=== PATIENT | female | born 1930 | race Caucasian/White ===

== ENCOUNTER 2017-12-16 07:18 | Emergency (ER) | payer MEDICARE, BC, MEDICAID ==
[2017-12-16 07:41] VITALS: BP 107/65
[2017-12-16 07:58] LABS: CHLORIDE,CL 96 mEq/L (98-106); SODIUM,NA 135 mEq/L (136-145)
[2017-12-16] MEDS ORDERED: Iopamidol 612 MG/ML 100 ML Bottle IVPUSH ONE (08:13)
[2017-12-16] MEDS ORDERED: Sodium Chloride 0.9% 500 ML IV SCH (08:15)
--- NOTE | 2017-12-16 08:27 | EDM.PDOC ---
ED HPI GENERAL MEDICAL PROBLEM - General Chief Complaint: General Stated Complaint: bleeding from vagina or rectum Time Seen by Provider: 12/16/17 08:01 Source of Information: Reports: Patient History Limitations: Reports: No Limitations - History of Present Illness INITIAL COMMENTS - FREE TEXT/NARRATIVE: This patient is an 87 year old female that presents to the ER. Patient reports that she was at the intermediate and was having a BM. She reports during her BM she had abdominal cramping, then looked down in the toilet and the BM was dark red blood per patient. Patient reports that after she had her BM she became lightheaded and her abdominal pain has continued. The patient reports that she has not had bleeding from rectum before. Patient does report that she has had history of diverticulitis. Patient denies fitch, n, v, d, f, cp, soa, back pain, neck pain, nec stiffness, runny nose, congestion, drainage, rashes. Patient does report having decreased urination. Will perform labs and CT due to patient abdominal tenderness with hx of diverticulitis. Onset: Today Onset Date: 12/16/17 Onset Time: 06:00 Duration: Hour(s): (2) Location: Reports: Abdomen Quality: Reports: Other (cramping) Severity: Mild Improves with: Reports: None Worsens with: Reports: None Associated Symptoms: Denies: Confusion, Chest Pain, Cough, cough w sputum, Diaphoresis, Fever/Chills, Headaches, Loss of Appetite, Malaise, Nausea/Vomiting , Rash, Seizure, Shortness of Breath, Syncope, Weakness - Related Data Allergies Allergy/AdvReac Type Severity Reaction Status Date / Time No Known Allergies Allergy Verified 12/16/17 07:35 Home Meds: Home Meds Aspirin [Halfprin] 81 mg PO DAILY 12/12/14 [History] Brimonidine Tartrate [Alphagan P 0.1% Oph Soln] 1 drop EYELF BID 12/12/14 [ History] Carvedilol 25 mg PO BID 12/12/14 [History] Cholecalciferol (Vitamin D3) [Vitamin D3] 2,000 unit PO DAILY 12/12/14 [History] Dorzolamide HCl/Timolol Maleat [Dorzolamide-Timolol Eye Drops] 1 drop EYELF BID 12/12/14 [History] Furosemide [Lasix] 40 mg PO BID 12/12/14 [History] Latanoprost 1 drop EYELF BEDTIME 12/12/14 [History] Levothyroxine 150 mcg PO 0700 12/12/14 [History] Multivitamin with Minerals [Antioxidant Vitamin] 1 tab PO DAILY 12/12/14 [ History] Oxybutynin [Oxybutynin ER] 10 mg PO DAILY 12/12/14 [History] guaiFENesin/Dextromethorphan [Tussin Dm Cough Syrup] 10 ml PO Q4H PRN 12/12/14 [ History] prednisoLONE Acetate [Pred Forte 1% Ophth Susp] 1 drop EYERT QID 12/12/14 [ History] rOPINIRole HCl [Requip] 0.25 mg PO BEDTIME 12/12/14 [History] traMADol HCl [Tramadol HCl] 100 mg PO BID 12/12/14 [History] Docusate Sodium [Colace] 100 mg PO DAILY 01/17/16 [History] Insulin Aspart Protam & Aspart [Novolog Mix 70-30 Flexpen Syrn] 40 unit SQ ACDINNER 01/17/16 [History] Insulin Aspart Protam & Aspart [Novolog Mix 70-30 Flexpen Syrn] 76 unit SQ ACBREAKFAST 01/17/16 [History] Lutein 20 mg PO DAILY 01/17/16 [History] Magnesium Hydroxide [Milk of Magnesia] 30 ml PO DAILY PRN 01/17/16 [History] Gabapentin [Neurontin] 200 mg PO BID 04/16/16 [History] Acetaminophen [Tylenol] 325 - 650 mg PO Q6H PRN 01/06/17 [History] Polyethylene Glycol 3350 [MiraLAX] 17 gm PO DAILY 01/06/17 [History] Potassium Chloride 80 meq PO BID 01/06/17 [History] Metolazone 5 mg PO MOWEFR@0730 01/09/17 [History] Magnesium 500 mg PO DAILY 12/16/17 [History] Torsemide [Demadex] 20 mg PO DAILY 12/16/17 [History] Past Medical History HEENT History: Reports: Glaucoma, Macular Degeneration, Other (See Below) Other HEENT History: dry eye syndrome of bilateral lacrimal glands Cardiovascular History: Reports: CAD, Heart Failure, Hypertension, Other (See Below) Other Cardiovascular History: hypokalemia Respiratory History: Reports: Asthma, Pneumonia, Recurrent Gastrointestinal History: Reports: Chronic Constipation Genitourinary History: Reports: Urinary Incontinence, UTI, Recurrent Musculoskeletal History: Reports: Fracture, Fibromyalgia, Osteoarthritis, Osteoporosis, Other (See Below) Other Musculoskeletal History: restless legs syndrome, chronic pain Neurological History: Reports: Other (See Below) Other Neuro History: polyneuropathy Psychiatric History: Reports: Dementia Endocrine/Metabolic History: Reports: Diabetes, Type II, Hypothyroidism - Infectious Disease History Infectious Disease History: Reports: VRE Social & Family History - Family History Family Medical History: Unobtainable Cardiac: Reports: Hypertension Endocrine/Metabolic: Reports: Diabetes, type II - Tobacco Use Smoking Status *Q: Never Smoker Second Hand Smoke Exposure: No - Caffeine Use Caffeine Use: Reports: None - Alcohol Use Days Per Week of Alcohol Use: 0 - Recreational Drug Use Recreational Drug Use: No ED ROS GENERAL - Review of Systems Review Of Systems: See Below Constitutional: Reports: No Symptoms HEENT: Reports: No Symptoms Respiratory: Reports: No Symptoms Cardiovascular: Reports: Lightheadedness Endocrine: Reports: No Symptoms GI/Abdominal: Reports: Abdominal Pain, Black Stool. Denies: Nausea, Vomiting : Reports: No Symptoms Musculoskeletal: Reports: No Symptoms Skin: Reports: No Symptoms Neurological: Reports: No Symptoms Psychiatric: Reports: No Symptoms Hematologic/Lymphatic: Reports: No Symptoms Immunologic: Reports: No Symptoms ED EXAM, GENERAL - Physical Exam Exam: See Below Exam Limited By: No Limitations General Appearance: Alert, WD/WN, No Apparent Distress Eye Exam: Bilateral Eye: Normal Inspection, PERRL Ears: Normal External Exam, Normal Canal, Hearing Grossly Normal, Normal TMs Ear Exam: Bilateral Ear: Auricle Normal, Canal Normal, TM normal Nose: Normal Inspection, Normal Mucosa, No Blood Throat/Mouth: Normal Inspection, Normal Lips, Normal Teeth, Normal Gums, Normal Oropharynx, Normal Voice, No Airway Compromise Head: Atraumatic, Normocephalic Neck: Normal Inspection, Supple, Non-Tender, Full Range of Motion Respiratory/Chest: No Respiratory Distress, Lungs Clear, Normal Breath Sounds, No Accessory Muscle Use, Chest Non-Tender Cardiovascular: Normal Peripheral Pulses, Regular Rate, Rhythm, No Edema, No Gallop, No JVD, No Murmur, No Rub Peripheral Pulses: 2+: Radial (L), Radial (R), Posterior Tibial (L), Posterior Tibial (R), Dorsalis Pedis (L), Dorsalis Pedis (R) GI/Abdominal: Normal Bowel Sounds, Soft, No Organomegaly, No Distention, No Abnormal Bruit, No Mass, Pelvis Stable, Tender (mildly LLQ, RLQ. ) (Female) Exam: Deferred Rectal (Female) Exam: Heme + Stool. No: Decreased Rectal Tone, Fecal Impaction , Hemorrhoids, Mass, Perirectal Abscess, Rectal Fissure, Tenderness Back Exam: Normal Inspection, Full Range of Motion. No: CVA Tenderness (L), CVA Tenderness (R) Extremities: Normal Inspection, Normal Range of Motion, Non-Tender, No Pedal Edema, Normal Capillary Refill Neurological: Alert, Oriented, CN II-XII Intact, Normal Cognition, No Motor/ Sensory Deficits Psychiatric: Normal Affect, Normal Mood Skin Exam: Warm, Dry, Intact, Normal Color, No Rash Lymphatic: No Adenopathy EKG INTERPRETATION EKG Date: 12/16/17 Time: 07:43 Rate (Beats/Min): 65 QRS: RBBB ST-T: Normal Course - Vital Signs Last Recorded V/S: Last Vital Signs Temp 96.6 F 12/16/17 07:20 Pulse 71 12/16/17 07:20 Resp 20 12/16/17 07:20 BP 107/65 12/16/17 07:20 Pulse Ox 95 12/16/17 07:20 - Orders/Labs/Meds Orders: Active Orders 24 hr Category Date Time Status Abdomen Pelvis w Cont [CT] Stat Exams 12/16/17 08:02 Taken CRP [C-REACTIVE PROTEIN] [CHEM] Stat Lab 12/16/17 09:49 Ordered UA W/MICROSCOPIC [URIN] Stat Lab 12/16/17 07:52 Ordered Sodium Chloride 0.9% [Normal Saline] 500 ml Med 12/16/17 08:15 Active IV .BOLUS Medication Orders Sodium Chloride (Normal Saline) 500 mls @ 500 mls/hr IV .BOLUS ALEXUS Labs: Laboratory Tests 12/16/17 12/16/17 Range/Units 07:40 07:40 WBC 8.8 (5.0-10.0) 10^3/uL RBC 3.67 L (4.00-5.50) 10^6/uL Hgb 12.2 (12.0-16.0) g/dL Hct 38.3 (37.0-47.0) % MCV 104.4 H (82.0-94.0) fL MCH 33.2 H (27.0-32.0) pg MCHC 31.9 L (33.0-38.0) g/dL RDW Coeff of Yulia 12.5 (11.0-15.0) % Plt Count 228 (150-400) 10^3/uL Neut % (Auto) 54.4 (35-85) % Lymph % (Auto) 31.3 (10-55) % [place] % (Auto) 9.2 (0-16) % Eos % (Auto) 5.0 (0-5) % Baso % (Auto) 0.1 (0-3) % Neut # (Auto) 4.79 (1.80-7.00) 10^3/uL Lymph # (Auto) 2.75 (1.00-4.80) 10^3/uL [place] # (Auto) 0.81 H (0.00-0.80) 10^3/uL Eos # (Auto) 0.44 (0.00-0.45) 10^3/uL Baso # (Auto) 0.01 10^3/uL Sodium 135 L (136-145) mEq/L Potassium 4.2 (3.5-5.0) mEq/L Chloride 96 L (98-106) mEq/L Carbon Dioxide 36 H (21-32) mmol/L BUN 47 H (7-18) mg/dL Creatinine 1.4 H (0.6-1.0) mg/dL Est Cr Clr Drug Dosing 24.91 mL/min Estimated GFR (MDRD) 36 L (>=60) mL/min Glucose 201 H D (75-99) mg/dL Calcium 9.2 (8.4-10.1) mg/dL Total Bilirubin 0.5 (0.0-1.0) mg/dL AST 56 H (15-37) U/L ALT 56 (12-78) U/L Alkaline Phosphatase 65 (46-116) U/L Troponin I < 0.017 (0.00-0.06) ng/mL Total Protein 6.9 (6.4-8.2) g/dL Albumin 3.0 L (3.4-5.0) g/dL Meds: Medications Generic Name Dose Route Start Last Admin Trade Name Elvia PRN Reason Stop Dose Admin Sodium Chloride 500 mls @ 500 mls/hr 12/16/17 08:15 Normal Saline IV .BOLUS ALEXUS Discontinued Medications Generic Name Dose Route Start Last Admin Trade Name Freq PRN Reason Stop Dose Admin Iopamidol 100 ml 12/16/17 08:13 Isovue-300 (61%) IVPUSH 12/16/17 08:14 ONETIME ONE - Radiology Interpretation Free Text/Narrative:: Abd/Pelvis ct with contrast: Discussed with radiologist: No diverticulitis, no enteritis, no acute findings. - Re-Assessments/Exams Free Text/Narrative Re-Assessment/Exam: 12/16/17 09:50 Patient vital signs normal. Hgb normal. CT normal. Discussed with Dr. Lucio her PCP about patient. Will send back to intermediate and repeat labs tomorrow and have intermediate call him tomorrow with results. Departure - Departure Time of Disposition: 09:50 Disposition: Home, Self-Care 01 Condition: Good Clinical Impression: GI bleed Qualifiers: GI bleed type/associated pathology: unspecified gastrointestinal hemorrhage type Qualified Code(s): K92.2 - Gastrointestinal hemorrhage, unspecified - Discharge Information Instructions: Gastrointestinal Bleeding, [id number] Referrals: Ishaan Lucio MD [Primary Care Provider] - Forms: ED Department Discharge Additional Instructions: Followup with your primary care provider this week Have labs done of CBC, BMP, CRP, UA done tomorrow at intermediate then have intermediate call Dr. Lucio with results Increase fluids Return to the ER for worsening of condition or any emergent concerns - My Orders Last 24 Hours: My Active Orders 12/16/17 07:52 UA W/MICROSCOPIC [URIN] Stat 12/16/17 08:02 Abdomen Pelvis w Cont [CT] Stat 12/16/17 08:15 Sodium Chloride 0.9% [Normal Saline] 500 ml IV .BOLUS 12/16/17 09:49 CRP [C-REACTIVE PROTEIN] [CHEM] Stat - Assessment/Plan Last 24 Hours: My Active Orders 12/16/17 07:52 UA W/MICROSCOPIC [URIN] Stat 12/16/17 08:02 Abdomen Pelvis w Cont [CT] Stat 12/16/17 08:15 Sodium Chloride 0.9% [Normal Saline] 500 ml IV .BOLUS 12/16/17 09:49 CRP [C-REACTIVE PROTEIN] [CHEM] Stat Plan: PLEASE SEE RN NOTE FOR PFSH.
== END 2017-12-16 10:20 | disposition home or self-care (01) ==
LOC: CC.ED 07:18
DX: K92.2 Gastrointestinal hemorrhage, unspecified (principal); I11.0 Hypertensive heart disease with heart failure; I50.9 Heart failure, unspecified; E11.9 Type 2 diabetes mellitus without complications; E03.9 Hypothyroidism, unspecified; Z79.82 Long term (current) use of aspirin; Z79.899 Other long term (current) drug therapy; Z79.4 Long term (current) use of insulin
CPT/HCPCS: 36415; 74177; 80053; 84484; 85025; 86140; 93005; 99284; Q9967; 93010; 96360; J7040

== ENCOUNTER 2018-09-22 11:11 | Inpatient (IN) | payer MEDICARE, BC, MEDICAID ==
[2018-09-22 11:44] LABS: CHLORIDE,CL 97 mEq/L (98-106); SODIUM,NA 139 mEq/L (136-145)
[2018-09-22] MEDS ORDERED: Azithromycin 500 MG in Sodium Chloride 0.9% 250 ML IV SCH (14:00)
[2018-09-22] MEDS ORDERED: cefTRIAXone 1 GM Vial IVPUSH SCH (14:00)
[2018-09-22] MEDS: Furosemide 40 MG/4 ML VIAL IVPUSH SCH (15:31)
[2018-09-22] MEDS: Enoxaparin 30 MG/0.3 ML Syringe SUBCUT SCH (15:31)
[2018-09-22] MEDS ORDERED: Glucagon,Human Recombinant 1 MG Vial IM STA (17:58)
[2018-09-22] MEDS ORDERED: Acetaminophen 325 MG Tab PO PRN (18:18)
[2018-09-22] MEDS: rOPINIRole 0.25 MG Tab PO SCH (21:52)
[2018-09-22] MEDS: Gabapentin 100 MG Cap PO SCH (21:52)
[2018-09-22] MEDS: Budesonide 0.5 MG/2 ML Neb Susp INH SCH (21:52)
[2018-09-22] MEDS: traMADol 50 MG Tab PO SCH (21:52)
[2018-09-22] MEDS: Carvedilol 12.5 MG Tab PO SCH (21:53)
[2018-09-22] MEDS: prednisoLONE Acetate 1% Ophth Susp 5 ML Bottle EYERT SCH (21:56)
[2018-09-22] MEDS: Latanoprost 0.005% Ophth Soln 2.5 ML Bottle EYELF SCH (21:57)
[2018-09-23] MEDS: Levothyroxine 150 MCG Tab PO SCH (06:50)
[2018-09-23] MEDS ORDERED: Insuln Aspart Prot/Insulin Aspart 100 Units/ML 3 ML FlexPen SUBCUT SCH ×3 (07:00→17:00)
[2018-09-23] MEDS: Docusate Sodium 100 MG Cap PO SCH (08:10)
[2018-09-23] MEDS: Carvedilol 12.5 MG Tab PO SCH ×2 (08:10→19:50)
[2018-09-23] MEDS: Ferrous Sulfate 324 MG Tab.EC PO SCH (08:10)
[2018-09-23] MEDS: Aspirin 81 MG Tab.EC PO SCH (08:11)
[2018-09-23] MEDS: Budesonide 0.5 MG/2 ML Neb Susp INH SCH ×2 (08:12→19:51)
[2018-09-23] MEDS: Gabapentin 100 MG Cap PO SCH ×2 (08:12→19:50)
[2018-09-23] MEDS: traMADol 50 MG Tab PO SCH ×2 (08:12→19:49)
[2018-09-23] MEDS: Polyethylene Glycol 3350 Powder 17 GM Packet PO SCH (08:12)
[2018-09-23] MEDS: prednisoLONE Acetate 1% Ophth Susp 5 ML Bottle EYERT SCH ×4 (08:14→19:54)
[2018-09-23] MEDS: Furosemide 40 MG/4 ML VIAL IVPUSH SCH ×2 (08:15→15:22)
[2018-09-23] MEDS: DORZOLAMIDE HCL EYELF SCH ×3 (09:40→19:53)
[2018-09-23] MEDS: TIMOLOL MALEAT EYELF SCH ×3 (09:40→19:53)
[2018-09-23] MEDS: BRIMONIDINE TARTRATE EYELF SCH ×3 (09:41→19:52)
[2018-09-23] MEDS: Potassium Chloride 10 MEQ Tab.ER PO SCH ×2 (09:44→19:48)
[2018-09-23] MEDS: POTASSIUM CHLORIDE 80 MEQ PO SCH (09:46)
[2018-09-23] MEDS: Enoxaparin 30 MG/0.3 ML Syringe SUBCUT SCH (14:43)
[2018-09-23] MEDS: Insulin Aspart 100 Units/ML 3 ML Pen SUBCUT SCH (17:20)
--- NOTE | 2018-09-23 19:46 | PCM.PN ---
- General Info Date of Service: 09/23/18 Admission Dx/Problem (Free Text): Acute on Chronic Systolic CHF Functional Status: Reports: Pain Controlled, Tolerating Diet. Denies: Ambulating - Review of Systems General: Reports: Weakness, Fatigue HEENT: Reports: No Symptoms Pulmonary: Reports: Shortness of Breath. Denies: Cough Cardiovascular: Reports: Edema. Denies: Chest Pain, Lightheadedness Gastrointestinal: Denies: Abdominal Pain, Nausea, Vomiting Genitourinary: Reports: Frequency Musculoskeletal: Reports: Leg Pain Skin: Reports: No Symptoms Neurological: Reports: Weakness - Patient Data Vitals - Most Recent: Last Vital Signs Temp 98.0 F 09/23/18 15:36 Pulse 75 09/23/18 15:36 Resp 20 09/23/18 15:36 BP 137/61 09/23/18 15:36 Pulse Ox 97 09/23/18 15:36 Weight - Most Recent: 226 lb 8 oz I&O - Last 24 Hours: Intake & Output 09/23/18 09/23/18 09/23/18 06:59 14:59 22:59 Intake Total 100 715 680 Balance 100 715 680 Lab Results Last 24 Hours: Laboratory Results - last 24 hr 09/22/18 09/22/18 09/22/18 Range/Units 17:47 18:27 18:50 WBC (5.0-10.0) 10^3/uL RBC (4.00-5.50) 10^6/uL Hgb (12.0-16.0) g/dL Hct (37.0-47.0) % MCV (82.0-94.0) fL MCH (27.0-32.0) pg MCHC (33.0-38.0) g/dL RDW Coeff of Yulia (11.0-15.0) % Plt Count (150-400) 10^3/uL Neut % (Auto) (35-85) % Lymph % (Auto) (10-55) % Nelson % (Auto) (0-16) % Eos % (Auto) (0-5) % Baso % (Auto) (0-3) % Neut # (Auto) (1.80-7.00) 10^3/uL Lymph # (Auto) (1.00-4.80) 10^3/uL Nelson # (Auto) (0.00-0.80) 10^3/uL Eos # (Auto) (0.00-0.45) 10^3/uL Baso # (Auto) 10^3/uL POC Glucose 44 L* 59 L 116 H (75-105) mg/dl C-Reactive Protein (0.2-0.8) mg/dL 09/22/18 09/23/18 09/23/18 Range/Units 20:44 02:18 06:58 WBC 8.7 (5.0-10.0) 10^3/uL RBC 3.40 L (4.00-5.50) 10^6/uL Hgb 11.6 L (12.0-16.0) g/dL Hct 38.4 (37.0-47.0) % MCV 112.9 H (82.0-94.0) fL MCH 34.1 H (27.0-32.0) pg MCHC 30.2 L (33.0-38.0) g/dL RDW Coeff of Yulia 13.1 (11.0-15.0) % Plt Count 153 (150-400) 10^3/uL Neut % (Auto) 65.0 (35-85) % Lymph % (Auto) 22.4 (10-55) % Nelson % (Auto) 10.9 (0-16) % Eos % (Auto) 1.5 (0-5) % Baso % (Auto) 0.2 (0-3) % Neut # (Auto) 5.65 (1.80-7.00) 10^3/uL Lymph # (Auto) 1.95 (1.00-4.80) 10^3/uL Nelson # (Auto) 0.95 H (0.00-0.80) 10^3/uL Eos # (Auto) 0.13 (0.00-0.45) 10^3/uL Baso # (Auto) 0.02 10^3/uL POC Glucose 268 H 266 H (75-105) mg/dl C-Reactive Protein (0.2-0.8) mg/dL 09/23/18 09/23/18 09/23/18 Range/Units 06:58 07:53 11:29 WBC (5.0-10.0) 10^3/uL RBC (4.00-5.50) 10^6/uL Hgb (12.0-16.0) g/dL Hct (37.0-47.0) % MCV (82.0-94.0) fL MCH (27.0-32.0) pg MCHC (33.0-38.0) g/dL RDW Coeff of Yulia (11.0-15.0) % Plt Count (150-400) 10^3/uL Neut % (Auto) (35-85) % Lymph % (Auto) (10-55) % Nelson % (Auto) (0-16) % Eos % (Auto) (0-5) % Baso % (Auto) (0-3) % Neut # (Auto) (1.80-7.00) 10^3/uL Lymph # (Auto) (1.00-4.80) 10^3/uL Nelson # (Auto) (0.00-0.80) 10^3/uL Eos # (Auto) (0.00-0.45) 10^3/uL Baso # (Auto) 10^3/uL POC Glucose 176 H 159 H (75-105) mg/dl C-Reactive Protein 0.7 (0.2-0.8) mg/dL 09/23/18 Range/Units 17:06 WBC (5.0-10.0) 10^3/uL RBC (4.00-5.50) 10^6/uL Hgb (12.0-16.0) g/dL Hct (37.0-47.0) % MCV (82.0-94.0) fL MCH (27.0-32.0) pg MCHC (33.0-38.0) g/dL RDW Coeff of Yulia (11.0-15.0) % Plt Count (150-400) 10^3/uL Neut % (Auto) (35-85) % Lymph % (Auto) (10-55) % Nelson % (Auto) (0-16) % Eos % (Auto) (0-5) % Baso % (Auto) (0-3) % Neut # (Auto) (1.80-7.00) 10^3/uL Lymph # (Auto) (1.00-4.80) 10^3/uL Nelson # (Auto) (0.00-0.80) 10^3/uL Eos # (Auto) (0.00-0.45) 10^3/uL Baso # (Auto) 10^3/uL POC Glucose 80 (75-105) mg/dl C-Reactive Protein (0.2-0.8) mg/dL Papo Results Last 24 Hours: Microbiology 09/22/18 14:17 Aerobic Blood Culture - Preliminary Blood - Venous - Lab Draw NO GROWTH AFTER 1 DAY Anaerobic Blood Culture - Preliminary NO GROWTH AFTER 1 DAY 09/22/18 14:17 Aerobic Blood Culture - Preliminary Blood - Venous NO GROWTH AFTER 1 DAY Anaerobic Blood Culture - Preliminary NO GROWTH AFTER 1 DAY Med Orders - Current: Current Medications Acetaminophen (Tylenol) 325 - 650 mg PO Q6H PRN PRN Reason: Pain/Fever Last Admin: 09/23/18 14:46 Dose: 650 mg Aspirin (Halfprin) 81 mg PO DAILY [facility] Last Admin: 09/23/18 08:11 Dose: 81 mg Budesonide (Pulmicort) 0.5 mg INH BIDRT [facility] Last Admin: 09/23/18 08:12 Dose: 0.5 mg Carvedilol (Coreg) 25 mg PO BID [facility] Last Admin: 09/23/18 08:10 Dose: 25 mg Docusate Sodium (Colace) 100 mg PO DAILY [facility] Last Admin: 09/23/18 08:10 Dose: 100 mg Enoxaparin Sodium (Lovenox) 30 mg SUBCUT Q24H [facility] Last Admin: 09/23/18 14:43 Dose: 30 mg Ferrous Sulfate (Ferrous Sulfate) 324 mg PO DAILY [facility] Last Admin: 09/23/18 08:10 Dose: 324 mg Furosemide (Lasix) 40 mg IVPUSH BIDDIURETIC [facility] Last Admin: 09/23/18 15:22 Dose: 40 mg Gabapentin (Neurontin) 200 mg PO BID [facility] Last Admin: 09/23/18 08:12 Dose: 200 mg Insulin Aspart (Novolog Mix 70-30) 20 unit SUBCUT ACDINNER [facility] Last Admin: 09/23/18 17:21 Dose: 20 units Insulin Aspart (Novolog Mix 70-30) 40 unit SUBCUT ACBREAKFAST [facility] Insulin Aspart (Novolog) 0 unit SUBCUT TIDMEALS [facility]; Protocol Last Admin: 09/23/18 17:20 Dose: Not Given Latanoprost (Xalatan 0.005% Ophth Soln) 0 ml EYELF BEDTIME [facility] Last Admin: 09/22/18 21:57 Dose: 1 drop Levothyroxine Sodium (Levothyroxine) 150 mcg PO 0700 [facility] Last Admin: 09/23/18 06:50 Dose: 150 mcg Magnesium Oxide (Magnesium Oxide) 500 mg PO DAILY [facility] Last Admin: 09/23/18 08:11 Dose: 500 mg Ptom Brimonidine Tartrate [Alphagan P 0.1% Ophth Soln] 1 Drop 1 drop EYELF BID [facility] Last Admin: 09/23/18 09:58 Dose: 1 drop Ptom Dorzolamide Hcl/Timolol Maleat [Dorzolamide-Timolol Eye Drop] 1 drop EYELF BID [facility] Last Admin: 09/23/18 09:40 Dose: 1 drop Polyethylene Glycol (Miralax) 17 gm PO DAILY [facility] Last Admin: 09/23/18 08:12 Dose: 17 gm Potassium Chloride (Klor-Con 10) 40 meq PO BID [facility] Last Admin: 09/23/18 09:44 Dose: 40 meq Prednisolone Acetate (Pred Forte 1% Ophth Susp) 0 ml EYERT QID [facility] Last Admin: 09/23/18 15:36 Dose: 1 drop Ropinirole HCl (Requip) 0.25 mg PO BEDTIME [facility] Last Admin: 09/22/18 21:52 Dose: 0.25 mg Tramadol HCl (Ultram) 100 mg PO BID [facility] Last Admin: 09/23/18 08:12 Dose: 100 mg Discontinued Medications Ceftriaxone Sodium (Rocephin) 1 gm IVPUSH Q24H [facility] Last Admin: 09/22/18 15:34 Dose: 1 gm Glucagon (Glucagen) 1 mg IM ONETIME STA Stop: 09/22/18 17:59 Last Admin: 09/22/18 18:07 Dose: 1 mg Azithromycin 500 mg/ Sodium (Chloride) 250 mls @ 250 mls/hr IV Q24H [facility] Last Admin: 09/22/18 15:34 Dose: 250 mls/hr Insulin Aspart (Novolog Mix 70-30) 36 unit SUBCUT ACDINNER [facility] Insulin Aspart (Novolog Mix 70-30) 72 unit SUBCUT ACBREAKFAST [facility] Last Admin: 09/23/18 08:31 Dose: 72 units Non-Formulary Medication (Potassium Chloride [Potassium Chloride]) 80 meq PO BID [facility] Last Admin: 09/23/18 09:46 Dose: Not Given - Exam Quality Assessment: Supplemental Oxygen General: Alert, Oriented, Cooperative Neck: Supple Lungs: Decreased Breath Sounds, Crackles Cardiovascular: Regular Rate, Regular Rhythm GI/Abdominal Exam: Normal Bowel Sounds, Soft, Non-Tender Extremities: Pedal Edema (3+ pitting edema in lower extremities) Skin: Warm, Dry Neurological: No New Focal Deficit - Problem List & Annotations (1) CHF (congestive heart failure) SNOMED Code(s): 98612892 Code(s): I50.9 - HEART FAILURE, UNSPECIFIED Status: Acute Priority: High Current Visit: Yes Qualifiers: Heart failure type: systolic Heart failure chronicity: acute on chronic Qualified Code(s): I50.23 - Acute on chronic systolic (congestive) heart failure - Problem List Review Problem List Initiated/Reviewed/Updated: Yes - My Orders Last 24 Hours: My Active Orders 09/23/18 09:15 Potassium Chloride [Klor-Con 10] 40 meq PO BID 09/23/18 17:00 Insuln Asp Prot/Insulin Aspart [NovoLOG Mix 70-30] 20 unit SUBCUT ACDINNER 09/23/18 17:30 Insulin Aspart [NovoLOG] See Protocol SUBCUT TIDMEALS 09/24/18 07:00 Insuln Asp Prot/Insulin Aspart [NovoLOG Mix 70-30] 40 unit SUBCUT ACBREAKFAST - Assessment Assessment:: Acute on Chronic Systolic Heart Failure - Plan Plan:: Patient stable this am, more alert today. Blood pressure stable. Oxygen sat 99 % on 3 liters. Lung sounds noted to have crackles in the bases. Edema 3+ pitting. Down 8# per nurses notes. Voiding well. Echocardiogram done, awaiting report. Labs on admit noted to have ProBNP of 2292. Creatinine 1.0. Potassium high at 5.3. Will continue with IV Lasix BID. Reduce potassium to 40 meq BID. Reduce insulin to 40 and 20 units BID, sliding scale at meals. Possibly discharge back to the group home tomorrow.
[2018-09-23] MEDS: rOPINIRole 0.25 MG Tab PO SCH (19:48)
[2018-09-23] MEDS: Latanoprost 0.005% Ophth Soln 2.5 ML Bottle EYELF SCH (20:30)
[2018-09-24] MEDS ORDERED: Insuln Aspart Prot/Insulin Aspart 100 Units/ML 3 ML FlexPen SUBCUT SCH (07:00)
[2018-09-24] MEDS: Furosemide 40 MG/4 ML VIAL IVPUSH SCH (07:37)
[2018-09-24] MEDS: Polyethylene Glycol 3350 Powder 17 GM Packet PO SCH (07:38)
[2018-09-24] MEDS: Aspirin 81 MG Tab.EC PO SCH (07:39)
[2018-09-24] MEDS: Potassium Chloride 10 MEQ Tab.ER PO SCH (07:39)
[2018-09-24] MEDS: Carvedilol 12.5 MG Tab PO SCH (07:39)
[2018-09-24] MEDS: Docusate Sodium 100 MG Cap PO SCH (07:40)
[2018-09-24] MEDS: Ferrous Sulfate 324 MG Tab.EC PO SCH (07:40)
[2018-09-24] MEDS: traMADol 50 MG Tab PO SCH (07:41)
[2018-09-24] MEDS: Gabapentin 100 MG Cap PO SCH (07:41)
[2018-09-24] MEDS: Budesonide 0.5 MG/2 ML Neb Susp INH SCH (07:42)
[2018-09-24] MEDS: prednisoLONE Acetate 1% Ophth Susp 5 ML Bottle EYERT SCH ×3 (07:42→17:21)
[2018-09-24] MEDS: DORZOLAMIDE HCL EYELF SCH (07:42)
[2018-09-24] MEDS: TIMOLOL MALEAT EYELF SCH (07:42)
[2018-09-24] MEDS: BRIMONIDINE TARTRATE EYELF SCH (07:43)
[2018-09-24] MEDS: Insulin Aspart 100 Units/ML 3 ML Pen SUBCUT SCH ×2 (07:54→11:50)
[2018-09-24] MEDS: Levothyroxine 150 MCG Tab PO SCH (08:51)
--- NOTE | 2018-09-24 15:11 | PCM.PN ---
- General Info Date of Service: 09/24/18 Admission Dx/Problem (Free Text): Acute on Chronic Systolic CHF Functional Status: Reports: Pain Controlled. Denies: Tolerating Diet, Ambulating - Review of Systems General: Reports: Weakness, Fatigue, Malaise HEENT: Reports: No Symptoms Pulmonary: Reports: Shortness of Breath. Denies: Cough Cardiovascular: Reports: Edema. Denies: Chest Pain, Lightheadedness Gastrointestinal: Denies: Abdominal Pain, Nausea, Vomiting Genitourinary: Reports: No Symptoms Musculoskeletal: Reports: No Symptoms Skin: Reports: No Symptoms Neurological: Reports: Weakness - Patient Data Vitals - Most Recent: Last Vital Signs Temp 97.6 F 09/24/18 11:45 Pulse 70 09/24/18 11:45 Resp 24 H 09/24/18 11:45 BP 136/38 L 09/24/18 11:45 Pulse Ox 96 09/24/18 11:45 Weight - Most Recent: 225 lb 11.2 oz I&O - Last 24 Hours: Intake & Output 09/24/18 09/24/18 09/24/18 06:59 14:59 22:59 Intake Total 500 Balance 500 Lab Results Last 24 Hours: Laboratory Results - last 24 hr 09/23/18 09/23/18 09/23/18 Range/Units 17:06 18:41 20:31 WBC (5.0-10.0) 10^3/uL RBC (4.00-5.50) 10^6/uL Hgb (12.0-16.0) g/dL Hct (37.0-47.0) % MCV (82.0-94.0) fL MCH (27.0-32.0) pg MCHC (33.0-38.0) g/dL RDW Coeff of Yulia (11.0-15.0) % Plt Count (150-400) 10^3/uL Neut % (Auto) (35-85) % Lymph % (Auto) (10-55) % [place] % (Auto) (0-16) % Eos % (Auto) (0-5) % Baso % (Auto) (0-3) % Neut # (Auto) (1.80-7.00) 10^3/uL Lymph # (Auto) (1.00-4.80) 10^3/uL [place] # (Auto) (0.00-0.80) 10^3/uL Eos # (Auto) (0.00-0.45) 10^3/uL Baso # (Auto) 10^3/uL D-Dimer, Quantitative (0.00-0.50) Sodium (136-145) mEq/L Potassium (3.5-5.0) mEq/L Chloride (98-106) mEq/L Carbon Dioxide (21-32) mmol/L BUN (7-18) mg/dL Creatinine (0.6-1.0) mg/dL Est Cr Clr Drug Dosing mL/min Estimated GFR (MDRD) (>=60) mL/min Glucose (75-99) mg/dL POC Glucose 80 158 H 165 H (75-105) mg/dl Calcium (8.4-10.1) mg/dL C-Reactive Protein (0.2-0.8) mg/dL 09/24/18 09/24/18 09/24/18 Range/Units 06:55 06:55 07:23 WBC 8.6 (5.0-10.0) 10^3/uL RBC 3.56 L (4.00-5.50) 10^6/uL Hgb 12.1 (12.0-16.0) g/dL Hct 40.8 (37.0-47.0) % MCV 114.6 H (82.0-94.0) fL MCH 34.0 H (27.0-32.0) pg MCHC 29.7 L (33.0-38.0) g/dL RDW Coeff of Yulia 13.0 (11.0-15.0) % Plt Count 169 (150-400) 10^3/uL Neut % (Auto) 66.2 (35-85) % Lymph % (Auto) 19.6 (10-55) % [place] % (Auto) 12.7 (0-16) % Eos % (Auto) 1.5 (0-5) % Baso % (Auto) 0 (0-3) % Neut # (Auto) 5.68 (1.80-7.00) 10^3/uL Lymph # (Auto) 1.68 (1.00-4.80) 10^3/uL [place] # (Auto) 1.09 H (0.00-0.80) 10^3/uL Eos # (Auto) 0.13 (0.00-0.45) 10^3/uL Baso # (Auto) 0.00 10^3/uL D-Dimer, Quantitative (0.00-0.50) Sodium 141 (136-145) mEq/L Potassium 4.6 (3.5-5.0) mEq/L Chloride 95 L (98-106) mEq/L Carbon Dioxide 55 H* (21-32) mmol/L BUN 17 (7-18) mg/dL Creatinine 0.9 (0.6-1.0) mg/dL Est Cr Clr Drug Dosing 38.03 mL/min Estimated GFR (MDRD) 59 L (>=60) mL/min Glucose 178 H D (75-99) mg/dL POC Glucose 176 H (75-105) mg/dl Calcium 8.8 (8.4-10.1) mg/dL C-Reactive Protein 2.5 H (0.2-0.8) mg/dL 09/24/18 09/24/18 09/24/18 Range/Units 10:47 13:54 14:50 WBC (5.0-10.0) 10^3/uL RBC (4.00-5.50) 10^6/uL Hgb (12.0-16.0) g/dL Hct (37.0-47.0) % MCV (82.0-94.0) fL MCH (27.0-32.0) pg MCHC (33.0-38.0) g/dL RDW Coeff of Yulia (11.0-15.0) % Plt Count (150-400) 10^3/uL Neut % (Auto) (35-85) % Lymph % (Auto) (10-55) % [place] % (Auto) (0-16) % Eos % (Auto) (0-5) % Baso % (Auto) (0-3) % Neut # (Auto) (1.80-7.00) 10^3/uL Lymph # (Auto) (1.00-4.80) 10^3/uL [place] # (Auto) (0.00-0.80) 10^3/uL Eos # (Auto) (0.00-0.45) 10^3/uL Baso # (Auto) 10^3/uL D-Dimer, Quantitative 0.45 (0.00-0.50) Sodium (136-145) mEq/L Potassium (3.5-5.0) mEq/L Chloride (98-106) mEq/L Carbon Dioxide (21-32) mmol/L BUN (7-18) mg/dL Creatinine (0.6-1.0) mg/dL Est Cr Clr Drug Dosing mL/min Estimated GFR (MDRD) (>=60) mL/min Glucose (75-99) mg/dL POC Glucose 214 H 198 H (75-105) mg/dl Calcium (8.4-10.1) mg/dL C-Reactive Protein (0.2-0.8) mg/dL Papo Results Last 24 Hours: Microbiology 09/22/18 14:17 Aerobic Blood Culture - Preliminary Blood - Venous - Lab Draw NO GROWTH AFTER 2 DAYS Anaerobic Blood Culture - Preliminary NO GROWTH AFTER 2 DAYS 09/22/18 14:17 Aerobic Blood Culture - Preliminary Blood - Venous NO GROWTH AFTER 2 DAYS Anaerobic Blood Culture - Preliminary NO GROWTH AFTER 2 DAYS Med Orders - Current: Current Medications Acetaminophen (Tylenol) 325 - 650 mg PO Q6H PRN PRN Reason: Pain/Fever Last Admin: 09/23/18 14:46 Dose: 650 mg Aspirin (Halfprin) 81 mg PO DAILY [facility] Last Admin: 09/24/18 07:39 Dose: 81 mg Budesonide (Pulmicort) 0.5 mg INH BIDRT [facility] Last Admin: 09/24/18 07:42 Dose: 0.5 mg Carvedilol (Coreg) 25 mg PO BID [facility] Last Admin: 09/24/18 07:39 Dose: 25 mg Docusate Sodium (Colace) 100 mg PO DAILY [facility] Last Admin: 09/24/18 07:40 Dose: 100 mg Enoxaparin Sodium (Lovenox) 30 mg SUBCUT Q24H [facility] Last Admin: 09/23/18 14:43 Dose: 30 mg Ferrous Sulfate (Ferrous Sulfate) 324 mg PO DAILY [facility] Last Admin: 09/24/18 07:40 Dose: 324 mg Furosemide (Lasix) 40 mg PO BIDDIURETIC [facility] Gabapentin (Neurontin) 200 mg PO BID [facility] Last Admin: 09/24/18 07:41 Dose: 200 mg Insulin Aspart (Novolog Mix 70-30) 20 unit SUBCUT ACDINNER [facility] Last Admin: 09/23/18 17:21 Dose: 20 units Insulin Aspart (Novolog Mix 70-30) 40 unit SUBCUT ACBREAKFAST [facility] Last Admin: 09/24/18 07:44 Dose: 40 units Insulin Aspart (Novolog) 0 unit SUBCUT TIDMEALS [facility]; Protocol Last Admin: 09/24/18 11:50 Dose: 2 unit Latanoprost (Xalatan 0.005% Ophth Soln) 0 ml EYELF BEDTIME [facility] Last Admin: 09/23/18 20:30 Dose: 1 drop Levothyroxine Sodium (Levothyroxine) 150 mcg PO 0700 [facility] Last Admin: 09/24/18 08:51 Dose: 150 mcg Magnesium Oxide (Magnesium Oxide) 500 mg PO DAILY [facility] Last Admin: 09/24/18 07:41 Dose: 500 mg Ptom Brimonidine Tartrate [Alphagan P 0.1% Ophth Soln] 1 Drop 1 drop EYELF BID [facility] Last Admin: 09/24/18 07:43 Dose: 1 drop Ptom Dorzolamide Hcl/Timolol Maleat [Dorzolamide-Timolol Eye Drop] 1 drop EYELF BID [facility] Last Admin: 09/24/18 07:42 Dose: 1 drop Polyethylene Glycol (Miralax) 17 gm PO DAILY [facility] Last Admin: 09/24/18 07:38 Dose: 17 gm Potassium Chloride (Klor-Con 10) 40 meq PO BID [facility] Last Admin: 09/24/18 07:39 Dose: 40 meq Prednisolone Acetate (Pred Forte 1% Ophth Susp) 0 ml EYERT QID [facility] Last Admin: 09/24/18 11:51 Dose: 1 drop Ropinirole HCl (Requip) 0.25 mg PO BEDTIME [facility] Last Admin: 09/23/18 19:48 Dose: 0.25 mg Tramadol HCl (Ultram) 100 mg PO BID [facility] Last Admin: 09/24/18 07:41 Dose: 100 mg Discontinued Medications Ceftriaxone Sodium (Rocephin) 1 gm IVPUSH Q24H [facility] Last Admin: 09/22/18 15:34 Dose: 1 gm Furosemide (Lasix) 40 mg IVPUSH BIDDIURETIC [facility] Last Admin: 09/24/18 07:37 Dose: 40 mg Furosemide (Lasix) 80 mg PO DAILY [facility] Glucagon (Glucagen) 1 mg IM ONETIME STA Stop: 09/22/18 17:59 Last Admin: 09/22/18 18:07 Dose: 1 mg Azithromycin 500 mg/ Sodium (Chloride) 250 mls @ 250 mls/hr IV Q24H [facility] Last Admin: 09/22/18 15:34 Dose: 250 mls/hr Insulin Aspart (Novolog Mix 70-30) 36 unit SUBCUT ACDINNER [facility] Insulin Aspart (Novolog Mix 70-30) 72 unit SUBCUT ACBREAKFAST [facility] Last Admin: 09/23/18 08:31 Dose: 72 units Non-Formulary Medication (Potassium Chloride [Potassium Chloride]) 80 meq PO BID [facility] Last Admin: 09/23/18 09:46 Dose: Not Given Torsemide (Demadex) 20 mg PO DAILY [facility] - Exam General: Alert, Oriented (person and time. States is at the senior care. Does conversive appropriately.), Lethargic (patient more lethargic this am. Does arouse easy but daughter also notes seems to be weaker today) HEENT: Mucous Membr. Moist/[place] Neck: Supple Lungs: Decreased Breath Sounds, Crackles Cardiovascular: Regular Rate, Regular Rhythm GI/Abdominal Exam: Normal Bowel Sounds, Soft, Non-Tender Extremities: Normal Inspection, Pedal Edema (2+, edema improved, weight down another 1#) Skin: Warm, Dry Neurological: No New Focal Deficit - Problem List & Annotations (1) CHF (congestive heart failure) SNOMED Code(s): 95495910 Code(s): I50.9 - HEART FAILURE, UNSPECIFIED Status: Acute Priority: High Current Visit: Yes Qualifiers: Heart failure type: systolic Heart failure chronicity: acute on chronic Qualified Code(s): I50.23 - Acute on chronic systolic (congestive) heart failure - Problem List Review Problem List Initiated/Reviewed/Updated: Yes - My Orders Last 24 Hours: My Active Orders 09/23/18 17:00 Insuln Asp Prot/Insulin Aspart [NovoLOG Mix 70-30] 20 unit SUBCUT ACDINNER 09/23/18 17:30 Insulin Aspart [NovoLOG] See Protocol SUBCUT TIDMEALS 09/24/18 07:00 Insuln Asp Prot/Insulin Aspart [NovoLOG Mix 70-30] 40 unit SUBCUT ACBREAKFAST 09/24/18 16:00 Furosemide [Lasix] 40 mg PO BIDDIURETIC - Assessment Assessment:: Acute on Chronic Systolic Heart Failure - Plan Plan:: Patient stable this am, more alert today. Blood pressure stable. Oxygen sat 99 % on 3 liters. Lung sounds noted to have crackles in the bases. Edema 3+ pitting. Down 8# per nurses notes. Voiding well. Echocardiogram done, awaiting report. Labs on admit noted to have ProBNP of 2292. Creatinine 1.0. Potassium high at 5.3. Will continue with IV Lasix BID. Reduce potassium to 40 meq BID. Reduce insulin to 40 and 20 units BID, sliding scale at meals. Possibly discharge back to the senior care tomorrow. 09-24-2018 Patient admits to feeling more weak and tired today, daughter also notes more lethargy. Oxygen sats are stable on 3 liters. Blood pressure is stable. She only ate a small amount of her breakfast. Blood sugars are stable this am. Echocardiogram shows ejection fraction of 60-65%. Moderately dilated left atrium. No concerning valve abnormalities noted. Will switch patient to oral Lasix BID. Continue to monitor sliding scale blood sugars. Ongoing telemetry. Possible discharge back to the senior care tomorrow.
[2018-09-24] MEDS ORDERED: Furosemide 40 MG Tab PO SCH (16:00)
[2018-09-24] MEDS: Morphine 2 MG/ML Syringe IVPUSH PRN ×2 (16:42→23:30)
--- NOTE | 2018-09-24 16:46 | PCM.SN ---
- Free Text/Narrative Note: Patient has declined over the afternoon. She is unresponsive. Shallow respirations. Oxygen requirement has increased to 6 liters to maintain sats over 90%. Labs done this afternoon are negative. Family recognizes changes and has changed to Code 3 and wish to keep her comfortable. Daughter Debbie would like all meds, vitals and lab draws stopped. Several family members here and in agreement with this plan. Will proceed with comfort cares only at this point.
[2018-09-24] MEDS: Enoxaparin 30 MG/0.3 ML Syringe SUBCUT SCH (17:20)
[2018-09-25 04:25] VITALS: BP 119/55
[2018-09-25] MEDS: Morphine 2 MG/ML Syringe IVPUSH PRN ×4 (05:15→11:40)
[2018-09-25] MEDS: Atropine 1% Ophth Soln 5 ML BOTTLE SL SCH ×4 (05:59→11:40)
[2018-09-25] MEDS ORDERED: Furosemide 40 MG Tab PO SCH (08:00)
[2018-09-25] MEDS ORDERED: Torsemide 20 MG Tab PO SCH (08:00)
--- NOTE | 2018-09-25 10:23 | PCM.PN ---
- General Info Date of Service: 09/25/18 Admission Dx/Problem (Free Text): Acute on Chronic Systolic CHF Functional Status: Reports: Pain Controlled. Denies: Tolerating Diet, Ambulating - Review of Systems General: Reports: Weakness, Other (patient unresponsive this am; unable to obtain ROS) - Patient Data Vitals - Most Recent: Last Vital Signs Temp 97.0 F 09/25/18 04:00 Pulse 80 09/25/18 04:00 Resp 26 H 09/25/18 04:00 BP 119/55 L 09/25/18 04:00 Pulse Ox 96 09/25/18 04:00 Weight - Most Recent: 225 lb 11.2 oz Lab Results Last 24 Hours: Laboratory Results - last 24 hr 09/24/18 09/24/18 09/24/18 Range/Units 10:47 13:54 14:50 D-Dimer, Quantitative 0.45 (0.00-0.50) POC Glucose 214 H 198 H (75-105) mg/dl Troponin I (0.00-0.06) ng/mL 09/24/18 09/24/18 Range/Units 14:50 20:28 D-Dimer, Quantitative (0.00-0.50) POC Glucose 149 H (75-105) mg/dl Troponin I 0.044 (0.00-0.06) ng/mL Papo Results Last 24 Hours: Microbiology 09/22/18 14:17 Aerobic Blood Culture - Preliminary Blood - Venous - Lab Draw NO GROWTH AFTER 2 DAYS Anaerobic Blood Culture - Preliminary NO GROWTH AFTER 2 DAYS 09/22/18 14:17 Aerobic Blood Culture - Preliminary Blood - Venous NO GROWTH AFTER 2 DAYS Anaerobic Blood Culture - Preliminary NO GROWTH AFTER 2 DAYS Med Orders - Current: Current Medications Acetaminophen (Tylenol) 325 - 650 mg PO Q6H PRN PRN Reason: Pain/Fever Last Admin: 09/23/18 14:46 Dose: 650 mg Atropine Sulfate (Atropine 1% Ophth Soln) 0 ml SL Q2H [facility] Last Admin: 09/25/18 07:56 Dose: 5 ml Morphine Sulfate (Morphine) 1 - 2 mg IVPUSH Q1H PRN PRN Reason: Agitation Last Admin: 09/25/18 07:07 Dose: 2 mg Discontinued Medications Aspirin (Halfprin) 81 mg PO DAILY [facility] Last Admin: 09/24/18 07:39 Dose: 81 mg Budesonide (Pulmicort) 0.5 mg INH BIDRT [facility] Last Admin: 09/24/18 07:42 Dose: 0.5 mg Carvedilol (Coreg) 25 mg PO BID [facility] Last Admin: 09/24/18 07:39 Dose: 25 mg Ceftriaxone Sodium (Rocephin) 1 gm IVPUSH Q24H [facility] Last Admin: 09/22/18 15:34 Dose: 1 gm Docusate Sodium (Colace) 100 mg PO DAILY [facility] Last Admin: 09/24/18 07:40 Dose: 100 mg Enoxaparin Sodium (Lovenox) 30 mg SUBCUT Q24H [facility] Last Admin: 09/24/18 17:20 Dose: Not Given Ferrous Sulfate (Ferrous Sulfate) 324 mg PO DAILY [facility] Last Admin: 09/24/18 07:40 Dose: 324 mg Furosemide (Lasix) 40 mg IVPUSH BIDDIURETIC [facility] Last Admin: 09/24/18 07:37 Dose: 40 mg Furosemide (Lasix) 80 mg PO DAILY [facility] Furosemide (Lasix) 40 mg PO BIDDIURETIC [facility] Last Admin: 09/24/18 17:21 Dose: Not Given Gabapentin (Neurontin) 200 mg PO BID [facility] Last Admin: 09/24/18 07:41 Dose: 200 mg Glucagon (Glucagen) 1 mg IM ONETIME STA Stop: 09/22/18 17:59 Last Admin: 09/22/18 18:07 Dose: 1 mg Azithromycin 500 mg/ Sodium (Chloride) 250 mls @ 250 mls/hr IV Q24H [facility] Last Admin: 09/22/18 15:34 Dose: 250 mls/hr Insulin Aspart (Novolog Mix 70-30) 36 unit SUBCUT ACDINNER [facility] Insulin Aspart (Novolog Mix 70-30) 72 unit SUBCUT ACBREAKFAST [facility] Last Admin: 09/23/18 08:31 Dose: 72 units Insulin Aspart (Novolog Mix 70-30) 20 unit SUBCUT ACDINNER [facility] Last Admin: 09/23/18 17:21 Dose: 20 units Insulin Aspart (Novolog Mix 70-30) 40 unit SUBCUT ACBREAKFAST [facility] Last Admin: 09/24/18 07:44 Dose: 40 units Insulin Aspart (Novolog) 0 unit SUBCUT TIDMEALS [facility]; Protocol Last Admin: 09/24/18 11:50 Dose: 2 unit Latanoprost (Xalatan 0.005% Ophth Soln) 0 ml EYELF BEDTIME [facility] Last Admin: 09/23/18 20:30 Dose: 1 drop Levothyroxine Sodium (Levothyroxine) 150 mcg PO 0700 [facility] Last Admin: 09/24/18 08:51 Dose: 150 mcg Magnesium Oxide (Magnesium Oxide) 500 mg PO DAILY [facility] Last Admin: 09/24/18 07:41 Dose: 500 mg Ptom Brimonidine Tartrate [Alphagan P 0.1% Ophth Soln] 1 Drop 1 drop EYELF BID [facility] Last Admin: 09/24/18 07:43 Dose: 1 drop Ptom Dorzolamide Hcl/Timolol Maleat [Dorzolamide-Timolol Eye Drop] 1 drop EYELF BID [facility] Last Admin: 09/24/18 07:42 Dose: 1 drop Non-Formulary Medication (Potassium Chloride [Potassium Chloride]) 80 meq PO BID [facility] Last Admin: 09/23/18 09:46 Dose: Not Given Polyethylene Glycol (Miralax) 17 gm PO DAILY [facility] Last Admin: 09/24/18 07:38 Dose: 17 gm Potassium Chloride (Klor-Con 10) 40 meq PO BID [facility] Last Admin: 09/24/18 07:39 Dose: 40 meq Prednisolone Acetate (Pred Forte 1% Ophth Susp) 0 ml EYERT QID [facility] Last Admin: 09/24/18 17:21 Dose: Not Given Ropinirole HCl (Requip) 0.25 mg PO BEDTIME [facility] Last Admin: 09/23/18 19:48 Dose: 0.25 mg Torsemide (Demadex) 20 mg PO DAILY [facility] Tramadol HCl (Ultram) 100 mg PO BID [facility] Last Admin: 09/24/18 07:41 Dose: 100 mg - Exam Quality Assessment: Supplemental Oxygen General: Obtunded Neck: Supple Lungs: Crackles Cardiovascular: Regular Rate, Regular Rhythm GI/Abdominal Exam: Normal Bowel Sounds, Soft, Non-Tender Extremities: Normal Inspection, No Pedal Edema (pitting edema in lower extremities), Pedal Edema Skin: Warm, Dry Neurological: Other (unresponsive) - Problem List & Annotations (1) CHF (congestive heart failure) SNOMED Code(s): 09879366 Code(s): I50.9 - HEART FAILURE, UNSPECIFIED Status: Acute Priority: High Current Visit: Yes Qualifiers: Heart failure type: systolic Heart failure chronicity: acute on chronic Qualified Code(s): I50.23 - Acute on chronic systolic (congestive) heart failure (2) Comfort measures only status SNOMED Code(s): 92691084202406 Code(s): Z51.5 - ENCOUNTER FOR PALLIATIVE CARE Status: Acute Priority: High Current Visit: Yes - Problem List Review Problem List Initiated/Reviewed/Updated: Yes - My Orders Last 24 Hours: My Active Orders 09/24/18 16:40 Comfort Measures [OM.PC] Routine - Assessment Assessment:: Acute on Chronic Systolic Heart Failure - Plan Plan:: Patient stable this am, more alert today. Blood pressure stable. Oxygen sat 99 % on 3 liters. Lung sounds noted to have crackles in the bases. Edema 3+ pitting. Down 8# per nurses notes. Voiding well. Echocardiogram done, awaiting report. Labs on admit noted to have ProBNP of 2292. Creatinine 1.0. Potassium high at 5.3. Will continue with IV Lasix BID. Reduce potassium to 40 meq BID. Reduce insulin to 40 and 20 units BID, sliding scale at meals. Possibly discharge back to the long-term tomorrow. 09-24-2018 Patient admits to feeling more weak and tired today, daughter also notes more lethargy. Oxygen sats are stable on 3 liters. Blood pressure is stable. She only ate a small amount of her breakfast. Blood sugars are stable this am. Echocardiogram shows ejection fraction of 60-65%. Moderately dilated left atrium. No concerning valve abnormalities noted. Will switch patient to oral Lasix BID. Continue to monitor sliding scale blood sugars. Ongoing telemetry. Possible discharge back to the long-term tomorrow. 09-25-2018 Patient had significant change in status yesterday afternoon. Noted to have very shallow respirations. D-dimer, troponin and ProBNP all negative. Labs stable. Discussed with family in regard to status and decreased respiratory drive that likely a response to a possible CVA as she should be responding with tachypnea due to hypoxia. Family opted at that time yesterday to proceed with comfort measures only so all meds, treatments, labs and injections were stopped. This am, she is unresponsive at this time. Daughter relates she does open her eyes and mumble at times. Still has shallow but now more wet respirations. Was given Atropine drops earlier this am for secretions. Lung sounds noted to have crackles in the bases and bronchial region. No response to sternal rub. Edema still 2+. Sats maintaining greater than 90% with 6 liters per mask. Will continue with Morphine as needed for comfort. Comfort measures only status and await events. Family at bedside.
[2018-09-25] MEDS ORDERED: Atropine 1% Ophth Soln 5 ML BOTTLE SL PRN (12:19)
--- NOTE | 2018-09-28 20:24 | PCM.DCSUM1 ---
Discharge Summary - Hospital Course Free Text/Narrative:: Patient admitted to acute inpatient from [facility] for increased weakness, increased confusion, edema. She had been noted to have jerking movements as well as the home. Oxygen sat dropped to 86% on 2 liters, increased to 3 liters to maintain greater than 90%. Staff had noted a 4# weight gain. Noted to have ProBNP of 2200. Was admitted and started on IV Lasix BID. Telemetry Diagnosis: Stroke: Yes Modified Coventry Scale: Sev.Disablility Bedridden,Incont.&Require Constant Nrsg.Care/Attention Modified Coventry Scale Score: 5 - Discharge Data Discharge Date: 09/25/18 Discharge Disposition: 20 Condition: - Discharge Diagnosis/Problem(s) (1) CHF (congestive heart failure) SNOMED Code(s): 04021769 ICD Code: I50.9 - HEART FAILURE, UNSPECIFIED Status: Acute Priority: High Qualifiers: Heart failure type: systolic Heart failure chronicity: acute on chronic Qualified Code(s): I50.23 - Acute on chronic systolic (congestive) heart failure (2) Comfort measures only status SNOMED Code(s): 95112062314674 ICD Code: Z51.5 - ENCOUNTER FOR PALLIATIVE CARE Status: Acute Priority: High - Patient Summary/Data Hospital Course: Patient was admitted for increased weakness, shortness of breath and CHF. Was given IV Lasix BID. Potassium was high so oral dose was reduced. Blood sugars low so insulin decreased. On day 2, patient had acute change in status. Became unresponsive. Troponin and d-dimer negative. Required high flow oxygen. Due to no change in status throughout the day, family decided to switch patient to comfort cares only. Patient continued to have progressive respiratory failure, respiratory drive. Morphine given to keep comfortable, atropine given for secretions. on 09-25-2018. - Discharge Plan *PRESCRIPTION DRUG MONITORING PROGRAM REVIEWED*: No *COPY OF PRESCRIPTION DRUG MONITORING REPORT IN PATIENT DILIP: No Home Medications: Home Meds Aspirin [Halfprin] 81 mg PO DAILY 12/12/14 [History] Brimonidine Tartrate [Alphagan P 0.1% Ophth Soln] 1 drop EYELF BID 12/12/14 [ History] Carvedilol 25 mg PO BID 12/12/14 [History] Dorzolamide HCl/Timolol Maleat [Dorzolamide-Timolol Eye Drops] 1 drop EYELF BID 12/12/14 [History] Furosemide [Lasix] 80 mg PO DAILY 12/12/14 [History] Latanoprost 1 drop EYELF BEDTIME 12/12/14 [History] Levothyroxine 150 mcg PO 0700 12/12/14 [History] guaiFENesin/Dextromethorphan [Gs Tussin Dm Cough Syrup] 10 ml PO Q4H PRN [History] prednisoLONE acetate [Pred Forte 1% Ophth Susp] 1 drop EYERT QID 12/12/14 [ History] rOPINIRole HCl [Requip] 0.25 mg PO BEDTIME 12/12/14 [History] traMADol HCl [Tramadol HCl] 100 mg PO BID 12/12/14 [History] Docusate Sodium [Colace] 100 mg PO DAILY 01/17/16 [History] Insulin Aspart Protam & Aspart [Novolog Mix 70-30 Flexpen Syrn] 36 unit SQ ACDINNER 01/17/16 [History] Insulin Aspart Protam & Aspart [Novolog Mix 70-30 Flexpen Syrn] 72 unit SQ ACBREAKFAST 01/17/16 [History] Gabapentin [Neurontin] 200 mg PO BID 04/16/16 [History] Acetaminophen [Tylenol] 325 - 650 mg PO Q6H PRN 01/06/17 [History] Polyethylene Glycol 3350 [MiraLAX] 17 gm PO DAILY 01/06/17 [History] Potassium Chloride 80 meq PO BID 01/06/17 [History] metOLazone [Metolazone] 5 mg PO FR@0730 01/09/17 [History] Magnesium 500 mg PO DAILY 12/16/17 [History] Torsemide [Demadex] 20 mg PO DAILY 12/16/17 [History] Budesonide [Pulmicort] 0.5 mg IH BID 09/22/18 [History] Ferrous Sulfate 325 mg PO DAILY 09/22/18 [History] Glucagon,Human Recombinant [Glucagon Emergency Kit] 1 mg IM ASDIRECTED PRN 09/22 [History] guaiFENesin [Guaifenesin] 400 mg PO Q4H PRN 09/22/18 [History] - Discharge Summary/Plan Comment DC Time >30 min.: No Discharge Summary/Plan Comment: 10-25-2018 - Patient Data Vitals - Most Recent: Last Vital Signs Temp 97.0 F 09/25/18 04:00 Pulse 80 09/25/18 04:00 Resp 26 H 09/25/18 04:00 BP 119/55 L 09/25/18 04:00 Pulse Ox 96 09/25/18 04:00 Weight - Most Recent: 225 lb 11.2 oz Med Orders - Current: Current Medications Discontinued Medications Acetaminophen (Tylenol) 325 - 650 mg PO Q6H PRN PRN Reason: Pain/Fever Last Admin: 09/23/18 14:46 Dose: 650 mg Aspirin (Halfprin) 81 mg PO DAILY [facility] Last Admin: 09/24/18 07:39 Dose: 81 mg Atropine Sulfate (Atropine 1% Ophth Soln) 0 ml SL Q2H [facility] Last Admin: 09/25/18 11:40 Dose: 5 ml Atropine Sulfate (Atropine 1% Ophth Soln) 3 ml SL Q2H PRN PRN Reason: Dyspnea Budesonide (Pulmicort) 0.5 mg INH BIDRT [facility] Last Admin: 09/24/18 07:42 Dose: 0.5 mg Carvedilol (Coreg) 25 mg PO BID [facility] Last Admin: 09/24/18 07:39 Dose: 25 mg Ceftriaxone Sodium (Rocephin) 1 gm IVPUSH Q24H [facility] Last Admin: 09/22/18 15:34 Dose: 1 gm Docusate Sodium (Colace) 100 mg PO DAILY [facility] Last Admin: 09/24/18 07:40 Dose: 100 mg Enoxaparin Sodium (Lovenox) 30 mg SUBCUT Q24H [facility] Last Admin: 09/24/18 17:20 Dose: Not Given Ferrous Sulfate (Ferrous Sulfate) 324 mg PO DAILY [facility] Last Admin: 09/24/18 07:40 Dose: 324 mg Furosemide (Lasix) 40 mg IVPUSH BIDDIURETIC [facility] Last Admin: 09/24/18 07:37 Dose: 40 mg Furosemide (Lasix) 80 mg PO DAILY [facility] Furosemide (Lasix) 40 mg PO BIDDIURETIC [facility] Last Admin: 09/24/18 17:21 Dose: Not Given Gabapentin (Neurontin) 200 mg PO BID [facility] Last Admin: 09/24/18 07:41 Dose: 200 mg Glucagon (Glucagen) 1 mg IM ONETIME STA Stop: 09/22/18 17:59 Last Admin: 09/22/18 18:07 Dose: 1 mg Azithromycin 500 mg/ Sodium (Chloride) 250 mls @ 250 mls/hr IV Q24H [facility] Last Admin: 09/22/18 15:34 Dose: 250 mls/hr Insulin Aspart (Novolog Mix 70-30) 36 unit SUBCUT ACDINNER [facility] Insulin Aspart (Novolog Mix 70-30) 72 unit SUBCUT ACBREAKFAST [facility] Last Admin: 09/23/18 08:31 Dose: 72 units Insulin Aspart (Novolog Mix 70-30) 20 unit SUBCUT ACDINNER [facility] Last Admin: 09/23/18 17:21 Dose: 20 units Insulin Aspart (Novolog Mix 70-30) 40 unit SUBCUT ACBREAKFAST [facility] Last Admin: 09/24/18 07:44 Dose: 40 units Insulin Aspart (Novolog) 0 unit SUBCUT TIDMEALS [facility]; Protocol Last Admin: 09/24/18 11:50 Dose: 2 unit Latanoprost (Xalatan 0.005% Ophth Soln) 0 ml EYELF BEDTIME [facility] Last Admin: 09/23/18 20:30 Dose: 1 drop Levothyroxine Sodium (Levothyroxine) 150 mcg PO 0700 [facility] Last Admin: 09/24/18 08:51 Dose: 150 mcg Magnesium Oxide (Magnesium Oxide) 500 mg PO DAILY [facility] Last Admin: 09/24/18 07:41 Dose: 500 mg Morphine Sulfate (Morphine) 1 - 2 mg IVPUSH Q1H PRN PRN Reason: Agitation Last Admin: 09/25/18 11:40 Dose: 2 mg Ptom Brimonidine Tartrate [Alphagan P 0.1% Ophth Soln] 1 Drop 1 drop EYELF BID [facility] Last Admin: 09/24/18 07:43 Dose: 1 drop Ptom Dorzolamide Hcl/Timolol Maleat [Dorzolamide-Timolol Eye Drop] 1 drop EYELF BID [facility] Last Admin: 09/24/18 07:42 Dose: 1 drop Non-Formulary Medication (Potassium Chloride [Potassium Chloride]) 80 meq PO BID [facility] Last Admin: 09/23/18 09:46 Dose: Not Given Polyethylene Glycol (Miralax) 17 gm PO DAILY [facility] Last Admin: 09/24/18 07:38 Dose: 17 gm Potassium Chloride (Klor-Con 10) 40 meq PO BID [facility] Last Admin: 09/24/18 07:39 Dose: 40 meq Prednisolone Acetate (Pred Forte 1% Ophth Susp) 0 ml EYERT QID [facility] Last Admin: 09/24/18 17:21 Dose: Not Given Ropinirole HCl (Requip) 0.25 mg PO BEDTIME [facility] Last Admin: 09/23/18 19:48 Dose: 0.25 mg Torsemide (Demadex) 20 mg PO DAILY [facility] Tramadol HCl (Ultram) 100 mg PO BID [facility] Last Admin: 09/24/18 07:41 Dose: 100 mg
== END 2018-09-25 23:40 | disposition expired | DRG 291 ==
LOC: CC.MS 11:11 → CC.FCMC 11:11 → CC.MS 12:30 → UNDOADMIN 12:30 → CC.MS 13:31 → UNDODISIN 09-25 23:40
PROVIDERS: ADMIT Physician Assistant Medical; ATTEND Family Medicine
DX: I50.23 Acute on chronic systolic (congestive) heart failure (principal); J96.90 Respiratory failure, unspecified, unspecified whether with hypoxia or hypercapnia; Z68.41 Body mass index [BMI] 40.0-44.9, adult; Z51.5 Encounter for palliative care; Z66 Do not resuscitate; G89.29 Other chronic pain; Z79.899 Other long term (current) drug therapy; Z79.82 Long term (current) use of aspirin; E66.01 Morbid (severe) obesity due to excess calories; I50.9 Heart failure, unspecified; R60.9 Edema, unspecified; R06.02 Shortness of breath
CPT/HCPCS: 36415; 71045; 80048; 80053; 81001; 82550; 82962; 83615; 83880; 84484; 85025; 85379; 86140; 87040; 93005; 93010; 93306; 94640; 94761; A9270-GY; J0456; J0696; J1610; J1650; J1815-GY; J1940; J2270; J7050